=== PATIENT | female | born 1965 ===

== ENCOUNTER 2017-11-21 01:42 | Emergency (ER) | payer OTHER ==
[2017-11-21] MEDS ORDERED: Sodium Chloride 0.9% 1,000 ML IV ONE (02:01)
[2017-11-21 02:05] VITALS: RESP 16; TEMP 98.5; O2SAT 98
[2017-11-21 02:12] LABS: BASO % 0.7 % (0.0-2.0); EOS # 0.1 K/uL (0.0-0.7); EOS % 1.7 % (0.0-4.0); HEMOGLOBIN 11.5 g/dL (11.0-16.0); LYMPH # 1.8 K/uL (1.0-4.3); LYMPH % 29.5 % (20.0-40.0); MEAN CELL VOLUME 81.8 fL (81.0-99.0); MEAN CORPUSCULAR HEMOGLOBIN 27.1 pg (27.0-31.0); MEAN CORPUSCULAR HGB CONC 33.2 g/dL (33.0-37.0); MEAN PLATELET VOLUME 8.9 fL (7.2-11.7); MONO # 0.5 K/uL (0.0-0.8); MONO % 7.5 % (0.0-10.0); NEUT # 3.7 K/uL (1.8-7.0); NEUT % 60.6 % (50.0-75.0); RBC 4.25 Mil/uL (3.80-5.20); WHITE BLOOD COUNT 6.2 K/uL (4.8-10.8)
[2017-11-21 02:19] LABS: SQUAMOUS EPITHIAL 2 /hpf (0-5); URINE BACTERIA RARE (<OCC); URINE BILIRUBIN NEGATIVE (NEGATIVE); URINE BLOOD 2+ (NEGATIVE); URINE CLARITY Hazy (Clear); URINE COLOR Yellow (YELLOW); URINE GLUCOSE (UA) NORMAL (Normal); URINE LEUKOCYTE ESTERASE TRACE Leu/uL (Negative); URINE PROTEIN NEGATIVE (NEGATIVE)
[2017-11-21 02:32] LABS: ALB/GLOB RATIO 1.2 (1.0-2.1); ALBUMIN 4.5 g/dL (3.5-5.0); ALT/SGPT 33 U/L (9-52); AST/SGOT 27 U/L (14-36); BLOOD UREA NITROGEN 20 mg/dL (7-17); CALCIUM 9.3 mg/dl (8.6-10.4); GFR AFRICAN-AMERICAN > 60; GFR NON-AFRICAN AMERICAN 58; LIPASE 125 U/L (23-300)
[2017-11-21] MEDS ORDERED: Iodixanol 320 MG/ML 100 ML BOTTLE IV ONE (02:33)
--- NOTE | 2017-11-21 02:38 | C.PDOC ---
History Of Present Illness 52-year-old female presents to the ED complaining of right lower quadrant pain since this morning. She reports taking naproxen at home without relief. Patient denies any associated nausea, vomiting, diarrhea, incontinence, dysuria, back pain, fever, or chills. She admits to chronic constipation, last bowel movement was today. Of note, patient had surgery 1 year ago for fibroid and ovary removal , and hernia repair. Time Seen by Provider: 11/21/17 01:54 Chief Complaint (Nursing): Abdominal Pain History Per: Patient History/Exam Limitations: no limitations Onset/Duration Of Symptoms: Days Current Symptoms Are (Timing): Still Present Past Medical History Reviewed: Historical Data, Nursing Documentation, Vital Signs Vital Signs: Last Vital Signs Temp 98.5 F 11/21/17 01:49 Pulse 56 L 11/21/17 05:29 Resp 16 11/21/17 01:49 BP 128/73 11/21/17 05:29 Pulse Ox 98 11/21/17 06:09 - Medical History PMH: Asthma, HTN, Hypercholesterolemia Other Surgeries: Fibroid and ovary removal, hernia repair Family History: States: No Known Family Hx - Social History Hx Alcohol Use: Yes Hx Substance Use: No Review Of Systems Except As Marked, All Systems Reviewed And Found Negative. Constitutional: Negative for: Fever, Chills Gastrointestinal: Positive for: Abdominal Pain, Constipation. Negative for: Nausea, Vomiting, Diarrhea Genitourinary: Negative for: Dysuria, Frequency, Incontinence Musculoskeletal: Negative for: Back Pain Physical Exam - Physical Exam Appears: Non-toxic, No Acute Distress Skin: Warm, Dry, No Rash Head: Atraumatic, Normacephalic Eye(s): bilateral: Normal Inspection Oral Mucosa: Moist Neck: Normal ROM Chest: Symmetrical Cardiovascular: Rhythm Regular, No Murmur Respiratory: Normal Breath Sounds, No Rales, No Rhonchi, No Wheezing Gastrointestinal/Abdominal: Bowel Sounds (active), Soft, Tenderness (to the right lower quadrant), No Distention, No Guarding Back: Normal Inspection Extremity: Bilateral: Atraumatic, Normal Color And Temperature, Normal ROM Neurological/Psych: Oriented x3, Normal Speech ED Course And Treatment - Laboratory Results Result Diagrams: 11/21/17 02:06 11/21/17 02:06 O2 Sat by Pulse Oximetry: 98 (RA) Pulse Ox Interpretation: Normal - CT Scan/US CT A/P Other Rad Studies (CT/US): Read By Radiologist, Radiology Report Reviewed CT/US Interpretation: Name: ARSH ORTIZ Age: 52Years F Date: 11/21/2017. Requesting Physician: Kevyn Zina : 1965. [employer] Procedure Ordered As Accession Number of. Images. CT ABDOMEN/PELVIS. W. CT ABD PELVIS IV CONTRAST. ONLY. [id number]. J. 620. Provided Clinical History: RLQ abd pain. EXAM: CT Abdomen and Pelvis With Intravenous Contrast. EXAM DATE/TIME: 11/21/2017 2:01 AM. CLINICAL HISTORY: 52 years old, female; Right lower quadrant pain. TECHNIQUE: Axial computed tomography images of the abdomen and pelvis with intravenous contrast. All CT scans at this facility use at least one of these dose optimization techniques: automated. exposure control; mA and/or kV adjustment per patient size (includes targeted exams where dose is. matched to clinical indication); or iterative reconstruction. Coronal and sagittal reformatted images were created and reviewed. COMPARISON: No relevant prior studies available. FINDINGS: Lower thorax: No acute basilar lung consolidation. There are trace pleural effusions. ABDOMEN: Liver : The liver is not enlarged. There is an ill-defined focus of diminished attenuation in segment. 4B adjacent to the fissure for the falciform ligament. This can be due to focal fatty change or an area. of anomalous perfusion. Gallbladder and bile ducts: No calcified gallstones, gallbladder wall thickening , or pericholecystic. inflammation. No biliary ductal dilation. Pancreas: No pancreatic mass, inflammation, or ductal dilation. Spleen: The spleen is homogeneous and is not enlarged. Adrenals: No adrenal mass. Kidneys and ureters: No hydronephrosis or nephrolithiasis. No hydroureter or ureterolithiasis. No. renal mass. Stomach and bowel: No bowel obstruction. There is a large amount of stool in the proximal colon,. with a "small bowel feces sign" compatible with small bowel stasis. Appendix: The appendix is not visualized, but no inflammatory process is present in the right lower. quadrant. PELVIS: Bladder: No urinary bladder calculus or wall thickening. Reproductive: Unremarkable as visualized. ABDOMEN and PELVIS: Intraperitoneal space: No ascites or pneumoperitoneum. Bones/joints: No acute osseous abnormality. Soft tissues: There is periumbilical subcutaneous fat stranding which can be due to edema or. inflammation. Any clinical sign of periumbilical cellulitis? Vasculature: No abdominal aortic aneurysm. No iliac or common femoral artery aneurysm. The. mesenteric arteries are patent. The mesenteric and portal veins are patent. Lymph nodes: No pathologically enlarged lymph nodes. IMPRESSION: Constipation. No sign of acute appendicitis. See above. Thank you for allowing us to participate in the care of your patient. Dictated and Authenticated by: Curtis Milligan MD. 11/21/2017 5:52 AM Eastern Time ([place] & [place]) Medical Decision Making Medical Decision Making: Impression: Right lower quadrant pain Plan: --CMP --CBC --Lipase --UA --IV fluids --30 mg IV Toradol --CT Abd/Pelvis with IV contrast Progress/Updates: CT scan shows constipation, patient counseled regarding results and provided with copy of report. On re-examination, patient is resting comfortably in no acute distress. Patient reports improvement of symptoms. Patient feels comfortable going home and will be discharged. Patient given follow up instructions. Instructed to return to ER if symptoms worsen or new symptoms arise. Disposition Counseled Patient/Family Regarding: Studies Performed, Diagnosis, Need For Followup, Rx Given - Disposition Referrals: Aide Lozano MD [Medical Doctor] - Disposition: HOME/ ROUTINE Disposition Time: 05:58 Condition: IMPROVED Additional Instructions: Tus laboratorios fueron normales La TC del abdomen muestra estreimiento, ausencia de infeccin u otra anomala Gary medicamentos para el estreimiento Abdirashid un seguimiento con hightower mdico Prescriptions: Docusate [Colace] 100 mg PO TID PRN #30 cap PRN Reason: Constipation Magnesium Citrate [Citrate of Mag] 300 ml PO ONCE PRN #1 bottle PRN Reason: Constipation Instructions: Constipation, Adult (DC) Print Language: HUNGARIAN - POA Present On Arrival: None - Clinical Impression Clinical Impression: Constipation, RLQ abdominal pain - PA / MACHINE ERECTOR / Resident Statement MD/DO has reviewed & agrees with the documentation as recorded. - Scribe Statement The provider has reviewed the documentation as recorded by the Scribe (Ciera Herrera) All medical record entries made by the Scribe were at my direction and personally dictated by me. I have reviewed the chart and agree that the record accurately reflects my personal performance of the history, physical exam, medical decision making, and the department course for this patient. I have also personally directed, reviewed, and agree with the discharge instructions and disposition.
[2017-11-21 05:30] VITALS: BP 128/73; PULSE 56
--- NOTE | 2017-11-21 11:36 | CT ---
Date of service: 11/21/2017 PROCEDURE: CT Abdomen and Pelvis with contrast HISTORY: RLQ abd pain COMPARISON: None. TECHNIQUE: CT scan of the abdomen and pelvis after performed without administration of intravenous contrast. Oral contrast was not administered. Coronal and sagittal reformatted images were obtained. Contrast dose: 100 mL Visipaque [id number] exam was performed using one or more of the following dose reduction techniques: Automated exposure control, adjustment of the mA and/or kV according to patient size, and/or use of iterative reconstruction technique. FINDINGS: LOWER THORAX: There is dependent atelectasis in the lung bases. LIVER: Normal in size with homogeneous enhancement. No gross lesion or ductal dilatation. GALLBLADDER AND BILE DUCTS: The gallbladder is partially contracted. PANCREAS: Normal in size with homogeneous enhancement. No gross lesion or ductal dilatation. SPLEEN: Normal in size with homogeneous enhancement. ADRENALS: No discrete nodule. KIDNEYS AND URETERS: Normal in size with homogeneous enhancement. No hydronephrosis. No solid mass. VASCULATURE: No aortic aneurysm. BOWEL: The small bowel loops are normal in caliber. There is fecalization of distal small bowel contents. There is large amount of stool in the ascending and transverse colon. The left hemicolon is decompressed. No bowel dilatation or obstruction. APPENDIX: No inflammatory changes in the right lower quadrant. PERITONEUM: No free fluid. No free air. LYMPH NODES: No enlarged lymph nodes. BLADDER: Well distended and normal in appearance. REPRODUCTIVE: Normal in sinus. BONES: No acute fracture. Within normal limits for the patient's age. OTHER FINDINGS: There is a small sliding hiatal hernia. IMPRESSION: No acute abdominal or pelvic abnormality. Specifically, no CT evidence for acute appendicitis. Constipation. No evidence for bowel obstruction. A preliminary report was provided by [employer].
== END 2017-11-21 06:05 | disposition home or self-care (01) ==
LOC: C.ER 01:42
DX: K59.00 Constipation, unspecified (principal); R10.31 Right lower quadrant pain
CPT/HCPCS: 74177; 80053; 81001; 83690; 85025; 96374; 99285; J1885; J7030; Q9967